=== PATIENT | male | born 1980 | race Caucasian/White ===

== ENCOUNTER 2018-10-29 21:43 | Emergency (ER) | payer OTHER, SELFPAY ==
--- NOTE | 2018-10-29 21:44 | DI.RAD.S_ITS ---
PROCEDURE: XR CHEST 1V INDICATIONS: chest pain TECHNIQUE: One view of the chest was acquired. COMPARISON: [facility], CR, XR CHEST 1VW (PORTABLE), 07/10/2015, 14:59. FINDINGS: Surgical changes and devices: None. Lungs and pleura: No pleural effusions or pneumothorax. 0.5 cm rounded nodular opacity projecting over the right middle lobe. Lungs are otherwise clear. Mediastinum: Mediastinal contours appear normal. Heart size is normal. Bones and chest wall: Mild multilevel degenerative changes of the spine. IMPRESSION: 1. 0.5 cm rounded nodular opacity projecting over the right middle lobe is slightly more prominent than on comparison exam of 07/10/15, and may represent a pulmonary vessel seen on end versus a pulmonary nodule/granuloma. Consider followup outpatient imaging if there is continued clinical concern. 2. No focal pulmonary consolidations consistent with pneumonia. Dictated by: Ej Bertrand M.D. on 10/30/2018 at 8:34 Approved by: Ej Bertrand M.D. on 10/30/2018 at 8:42
--- NOTE | 2018-10-29 21:45 | ED.CHESTPAIN ---
HPI - Chest Pain General Chief Complaint: Chest Pain Stated Complaint: chest pains Time Seen by Provider: 10/29/18 21:44 Source: patient Mode of arrival: ambulatory Limitations: no limitations History of Present Illness HPI narrative: Patient is a 38-year-old male with known coronary artery disease. Approximately 3-4 years ago he stated that he had a ?heart attack? he stated that he had a cardiac catheterization at that time and had stents placed. He is currently on aspirin and cholesterol medicine and also a beta-sadi. He states that he has had no issues since that event. It appears that his father had early cardiac disease. 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 He states that last evening he started to have left-sided chest discomfort. He states that the symptoms went away on their own. He had no symptoms when he woke up this morning. Went about his normal daily activities. He states that approximately 1800 this afternoon he started to have the chest discomfort again. He states it has been consistent since then. He does state that it is much less intense than his prior cardiac issues. He did take 2 nitro when the symptoms started reported very minimal relief. States the symptoms are not worse with palpation or movement or breathing. Does not radiate. Related Data Allergies Allergy/AdvReac Type Severity Reaction Status Date / Time Penicillins [PENICILLINS] Allergy Severe Unverified 01/25/18 12:34 Review of Systems Constitutional Denies fever(s) and Denies headache(s) ENT Ears, Nose, Mouth, and Throat: Denies vertigo, Denies dizziness and Denies headache(s) Cardiovascular Reports chest pain, Denies rapid heart rate, Denies pedal edema, Denies edema, Denies irregular heart rhythm, Denies leg edema, Denies lightheadedness, Denies radiating jaw, neck or arm pain, Denies palpitations, Denies dyspnea and Denies orthopnea Respiratory Denies cough, Denies dyspnea and Denies wheezing Gastrointestinal Gastrointestinal: Denies abdominal pain, Denies nausea and Denies vomiting Musculoskeletal Denies myalgias and Denies arthralgias Integumentary/Breasts Denies rash Neurologic Denies vertigo, Denies dizziness and Denies headache(s) Endocrine Denies palpitations Hematologic/Lymphatic Comments: Not on anticoagulation Allergic/Immunologic Denies wheezing PFSH Medical History Coronary artery disease (Acute) Hypertension (Acute) Surgical History S/P cardiac catheterization (Acute) Social History Smoking Status: Former smoker Exam Initial Vital Signs Initial Vital Signs: Vital Signs Temperature 98.1 F 10/29/18 21:55 Pulse Rate 90 10/29/18 21:55 Respiratory Rate 13 10/29/18 21:55 Blood Pressure 194/124 H 10/29/18 21:55 Pulse Oximetry 98 10/29/18 21:55 Const General: cooperative, healthy appearing, comfortable, well developed, well groomed and No acute distress Orientation: alert, awake and oriented x3 HENMT Head: normal to inspection and normocephalic Chest Chest: normal inspection of the chest, No crepitus and No tenderness Resp Effort & Inspection: normal respiratory effort Auscultation: clear to auscultation bilaterally Cardio Rate: regular rate Rhythm: regular rhythm Heart Sounds: no murmurs Pulses: radial pulses present GI Inspection: non-distended Palpation: soft and No tender Skin Lesions: no lesions Rashes: no rashes Neuro General: alert, awake and oriented x3 Cognition: normal cognition Speech: speech normal Extrem General: normal to inspection and No edema Psych Appearance: grossly normal and well kempt Course Orders Ordered: ED Orders 10/29/18 21:44 XR chest 1V Stat EKG-12 Lead Stat 10/29/18 22:08 Basic Metabolic Panel Stat Complete Blood Count AUTO DIFF Stat Troponin I Stat 10/29/18 23:30 PTT [Partial Thromboplastin Time] Q6H 10/30/18 05:00 Hemoglobin and Hematocrit DAILY 10/30/18 05:30 PTT [Partial Thromboplastin Time] Q6H 10/30/18 11:30 PTT [Partial Thromboplastin Time] Q6H 10/30/18 17:30 PTT [Partial Thromboplastin Time] Q6H Heparin Sodium (Porcine) (Heparin) 0 unit IV Q6H PRN; Protocol PRN Reason: protocol Heparin Sodium/Dextrose (Heparin Drip) 25,000 unit in 500 mls @ 20.684 mls/hr IV CONT MAKI; Protocol Discontinued Medications Aspirin (Aspirin Chew) 324 mg PO NOW ONE Stop: 10/29/18 21:57 Last Admin: 10/29/18 22:01 Dose: 324 mg Heparin Sodium (Porcine) (Heparin) 5,000 unit IV NOW ONE Stop: 10/29/18 23:27 Nitroglycerin (Nitro-Bid) 1 inch TOP NOW ONE Stop: 10/29/18 23:27 Vital Signs - 8 hr 10/29/18 21:55 10/29/18 22:00 10/29/18 22:46 Temperature 98.1 F Pulse Rate 90 84 89 Respiratory Rate 13 15 24 Blood Pressure 194/124 H Blood Pressure [Left Arm] 163/115 H 161/116 H Pulse Oximetry 98 97 95 10/29/18 23:18 Temperature Pulse Rate 81 Respiratory Rate 17 Blood Pressure Blood Pressure [Left Arm] 159/96 H Pulse Oximetry 99 MDM - Chest Pain Lab Data Attestation: I reviewed the patient's lab results. Result diagrams: 10/29/18 22:08 10/29/18 22:08 Lab Results 10/29/18 10/29/18 Range/Units 22:08 22:08 WBC 7.9 (4.5-11.0) X10^3/uL RBC 5.58 (4.5-5.9) X10^6/uL Hgb 16.5 (13.5-17.5) g/dL Hct 48.9 (41-53) % MCV 87.8 (80-100) fL MCH 29.6 (26-34) PG MCHC 33.8 (30-36) % RDW 13.1 (11.6-14.8) % Plt Count 374 (150-400) X10^3/uL Neut % (Auto) 56.4 (50-75) % Lymph % (Auto) 31.8 (25-40) % [place] % (Auto) 8.3 (3-14) % Eos % (Auto) 2.9 (2-4) % Baso % (Auto) 0.6 (0-2) % Neut # (Auto) 4400 (5589-7331) /uL Lymph # (Auto) 2500 (4882-9222) /uL [place] # (Auto) 700 (0-900) /uL Eos # (Auto) 200 (0-450) /uL Baso # (Auto) 0 (0-100) /uL Sodium 141 (137-145) mmol/L Potassium 4.1 (3.4-5.1) mmol/L Chloride 105 (98-107) mmol/L Carbon Dioxide 25 (22-32) mmol/L BUN 22 H (9-20) mg/dL Creatinine 0.90 (0.66-1.25) mg/dL Estimated GFR > 60.0 (>60) mL/min BUN/Creatinine Ratio 24.4 H (6-22) Glucose 105 H (70-100) mg/dL Calcium 9.3 (8.4-10.2) mg/dL Troponin I 0.049 H (0.01-0.034) ng/mL Imaging Data Chest x-ray: Attestation: I personally reviewed and interpreted this imaging study as follows: My impression: Normal size heart No focal consolidations No pneumothorax ECG Data Attestation: I personally reviewed and interpreted this ECG as follows: Prior ECG tracings: not available for review Interpretation: Sinus rhythm Ventricular rate is 77 LVH Normal QRS Normal QTC Q-wave in 2 AVF [address] T wave changes MDM Narrative Medical decision making narrative: Patient was given an aspirin. Nonischemic EKG. Chest x-ray is unremarkable. Does have a significant cardiovascular disease history with a prior history of a myocardial infarction. I have no prior EKGs notes regarding his prior cardiac history. He does see a back tufter but is through the [employer] system. Patient does have an elevated troponin today in the ER. I did discuss the case with Dr. De La Cruz on-call for Cardiology at [facility] who recommended treating him like a NSTEMI. Patient was started on heparin. Also started on a nitro drip. Discussed the case with the on-call hospitalist [facility] who accepts the patient in transfer. Discussed the transfer with the patient and his her bedside. They expressed understanding and agreement. Patient is stable for transport. Discharge Plan Departure Patient Disposition: [facility] Clinical Impression: ACS (acute coronary syndrome)
[2018-10-29 21:55] VITALS: BP 194/124; PULSE 90; RESP 13; TEMP 36.7; O2SAT 98; BMI 27.2
[2018-10-29 22:00] VITALS: BP 163/115; PULSE 84; RESP 15; O2SAT 97
[2018-10-29] MEDS: ASPIRIN 81 MG TAB 324 MG PO (22:01)
[2018-10-29 22:44] LABS: Add Manual Diff / Slide Review NO; BUN Creatinine Ratio 24.4 (6-22); Basophils Absolute Auto 0 /uL (0-100); Basophils Percent Auto 0.6 % (0-2); Blood Urea Nitrogen 22 mg/dL (9-20); Calcium 9.3 mg/dL (8.4-10.2); Carbon Dioxide 25 mmol/L (22-32); Chloride 105 mmol/L (98-107); Eosinophils Absolute Auto 200 /uL (0-450); Eosinophils Percent Auto 2.9 % (2-4); Estimated Glomerular Filt Rate > 60.0 mL/min (>60); Glucose 105 mg/dL (70-100); Hematocrit 48.9 % (41-53); Hemoglobin 16.5 g/dL (13.5-17.5); Lymphocytes Absolute Auto 2500 /uL (1100-4500); Lymphocytes Percent Auto 31.8 % (25-40); Mean Corpuscular HGB Conc 33.8 % (30-36); Mean Corpuscular Hemoglobin 29.6 PG (26-34); Mean Corpuscular Volume 87.8 fL (80-100); Monocytes Absolute Auto 700 /uL (0-900); Monocytes Percent Auto 8.3 % (3-14); Neutrophils Absolute Auto 4400 /uL (1500-7000); Neutrophils Percent Auto 56.4 % (50-75); Platelet Count 374 X10^3/uL (150-400); Potassium 4.1 mmol/L (3.4-5.1); Red Blood Cell Count 5.58 X10^6/uL (4.5-5.9); Red Cell Distribution Width 13.1 % (11.6-14.8); Sodium 141 mmol/L (137-145); White Blood Cell Count 7.9 X10^3/uL (4.5-11.0)
[2018-10-29 22:46] VITALS: BP 161/116; PULSE 89; RESP 24; O2SAT 95
[2018-10-29 22:54] LABS: HEMOLYSIS 73 (0-50)
[2018-10-29 22:56] LABS: Troponin I 0.049 ng/mL (0.01-0.034)
[2018-10-29 23:18] VITALS: BP 159/96; PULSE 81; RESP 17; O2SAT 99
[2018-10-29] MEDS: HEPARIN 5,000 UNIT/ML VIAL 5000 UNIT IV (23:37)
[2018-10-29] MEDS: HEPARIN DRIP 25,000 UNIT/500 ML IV.SOLN 20.684 UNIT IV (23:38)
[2018-10-29 23:41] VITALS: BP 181/132; PULSE 84
[2018-10-29] MEDS: NITROGLYCERIN 50 MG/250 ML INFUS..BTL IV (23:41)
--- NOTE | 2018-10-30 00:15 | PC.NURSE ---
Pt reports chest pain is now 1/10 on nitro gtt at 7ml/hr. Gtt increased to 9ml/hr = 30 mcg/minute. Dr Ramires updated. BP stable.
[2018-10-30 00:21] LABS: PTT Partial Thromboplastin Tim 36 SECONDS (26.4-36.2)
[2018-10-30 00:47] VITALS: BP 143/87; PULSE 93; RESP 17; O2SAT 94
--- NOTE | 2018-10-30 00:56 | PC.NURSE ---
[facility]
--- NOTE | 2018-10-30 01:39 | PC.NURSE ---
iv infusions of heparin and nitro to continue in transport
== END 2018-10-30 01:15 | disposition short-term general hospital (02) ==
PROVIDERS: Emergency Provider Emergency Medicine; Family Provider Pediatrics; PCP Pediatrics
DX: I24.9 Acute ischemic heart disease, unspecified (principal)
CPT/HCPCS: 36591; 71045; 80048; 84484; 85025; 85730; 93005; 93010; 96365; 96366; 96368; 96375; 99284; 99285; J1644

== ENCOUNTER 2021-11-05 09:47 | Emergency (ER) | payer OTHER, SELFPAY ==
[2021-11-05] VITALS (71 sets, daily range): BP systolic 106–169; BP diastolic 67–110; PULSE 55–88; RESP 12–30; TEMP 36.7; O2SAT 91–99; BMI 31.6
--- NOTE | 2021-11-05 09:56 | DI.RAD.S_ITS ---
PROCEDURE: XR CHEST 1V INDICATIONS: chest pain TECHNIQUE: One view of the chest was acquired. COMPARISON: [facility], CR, XR CHEST 1VW (PORTABLE), 07/10/2015, 14:59. [facility], CR, XR CHEST 1V, 10/29/2018, 22:21. FINDINGS: Surgical changes and devices: None. Lungs and pleura: An incomplete inspiratory result is noted, causing a crowded appearance to the lung markings. No focal infiltrates are seen. No pneumothorax or significant pleural effusions are seen. Mediastinum: Mediastinal contours appear normal. Heart size is at the upper limits of normal for incomplete inspiratory result. Bones and chest wall: No suspicious bony lesions. Overlying soft tissues appear unremarkable. IMPRESSION: Limited portable chest examination, without a significant cardiopulmonary abnormality identified. Dictated by: Lul Winters M.D. on 11/05/2021 at 9:06 Approved by: Lul Winters M.D. on 11/05/2021 at 9:07
--- NOTE | 2021-11-05 09:56 | PC.NURSE ---
verbal order from dr calixto to add Nitro and asa order in chest pain orders.
[2021-11-05] MEDS: ASPIRIN 81 MG CHEW TAB 324 MG PO (10:00)
[2021-11-05] MEDS: NITROGLYCERIN 0.4 MG SL TAB SL ×2 (10:01→10:18)
[2021-11-05 10:09] LABS: Add Manual Diff / Slide Review NO; Basophils Absolute Auto 0 /uL (0-100); Basophils Percent Auto 0.6 % (0-2); Eosinophils Absolute Auto 200 /uL (0-450); Hematocrit 45.6 % (41-53); Hemoglobin 15.5 g/dL (13.5-17.5); Lymphocytes Absolute Auto 1600 /uL (1100-4500); Lymphocytes Percent Auto 21.6 % (25-40); Mean Corpuscular HGB Conc 33.9 % (30-36); Mean Corpuscular Hemoglobin 29.6 PG (26-34); Mean Corpuscular Volume 87.4 fL (80-100); Monocytes Absolute Auto 700 /uL (0-900); Monocytes Percent Auto 9.6 % (3-14); Neutrophils Absolute Auto 5000 /uL (1500-7000); Neutrophils Percent Auto 66.2 % (50-75); Platelet Count 361 X10^3/uL (150-400); Red Blood Cell Count 5.22 X10^6/uL (4.5-5.9); Red Cell Distribution Width 13.6 % (11.6-14.8); White Blood Cell Count 7.6 X10^3/uL (4.5-11.0)
--- NOTE | 2021-11-05 10:09 | ED_ITS ---
HPI - Chest Pain <Alejandra Madrigal DO - Last Filed: 11/06/21 22:27> General Chief Complaint: Chest Pain Stated Complaint: CHEST/BACK PAIN, HX OF HEART ATTACKS Time Seen by Provider: 11/05/21 10:01 Source: patient Mode of arrival: Ambulatory Limitations: no limitations History of Present Illness HPI narrative: 41-year-old male nonsmoker with history of hypertension, hyperlipidemia and prior heart attacks, most recently stented in 2019 at [place], also 2014 at [place] and [place] a ago presents with 7/10 chest and back pain with radiation to his left shoulder that he woke up with this morning. He denies any obvious provocation or palliation. He states he took nitro at home with no change. He denies associated symptoms such as dizziness, weakness or lightheadedness. He denies any diaphoresis, nausea or vomiting. He is not short of breath and denies any recent travel. He states that in some ways this feels similar to prior episodes and others it is slightly different. His pain is squeezing and grabbing in nature. Related Data Home Medications Medication Instructions Recorded Confirmed aspirin 81 mg tablet,delayed 81 mg PO QAM 10/30/18 11/05/21 release (Adult Low Dose Aspirin) carvedilol 12.5 mg tablet 12.5 mg PO BID 10/30/18 11/05/21 ezetimibe 10 mg tablet (Zetia) 10 mg PO QAM 10/30/18 11/05/21 nitroglycerin 0.4 mg sublingual 0.4 mg SUBLINGUAL Q5-15M PRN 10/30/18 11/05/21 tablet atorvastatin 80 mg tablet 80 mg PO QAM 11/05/21 11/05/21 clopidogrel 75 mg tablet 75 mg PO QAM 11/05/21 11/05/21 dulaglutide 1.5 mg/0.5 mL 1.5 mg SUBCUT QWEEK 11/05/21 11/05/21 subcutaneous pen injector (Trulicity) empagliflozin 25 mg tablet 25 mg PO QAM 11/05/21 11/05/21 (Jardiance) lisinopril 10 mg tablet 10 mg PO BID 11/05/21 11/05/21 Allergies Allergy/AdvReac Type Severity Reaction Status Date / Time metformin Allergy Unknown Verified 11/05/21 10:47 Penicillins [PENICILLINS] Allergy Unknown Verified 11/05/21 10:47 Review of Systems <Alejandra Madrigal DO - Last Filed: 11/06/21 22:27> Review of Systems Narrative: GENERAL: Denies chills, fatigue, malaise, fever, sweats. HEENT: Denies sinus pain, ear pain, sore throat, difficulty swallowing, dizziness. RESPIRATORY: Denies dyspnea, cough, wheezing, hemoptysis, sputum. CARDIOVASCULAR: See HPI GASTROINTESTINAL: Denies nausea, vomiting, abdominal pain, diarrhea, constipat ion, melena. : Denies dysuria, frequency, incontinence, hematuria, urinary retention. MUSCULOSKELETAL: denies weakness, joint pain, or bony pain SKIN: Denies rash, skin lesions, or other NEUROLOGIC: Denies weakness, headache, numbness, change in speech, confusion, seizures, incoordination. PSYCHIATRIC: No concerning psychosocial issues. 12 point review of systems is negative except for those stated above Patient History <Alejandra Madrigal DO - Last Filed: 11/06/21 22:27> Medical History Coronary artery disease Hypertension Surgical History S/P cardiac catheterization Social History Smoking Status: Former smoker Smoking Status: Former smoker alcohol intake frequency: 0-2 drinks per day Substance Use Type: does not use Exam <Alejandra Madrigal DO - Last Filed: 11/06/21 22:27> Narrative Exam Narrative: GENERAL: [41 year old patient appears stated age. Well-developed patient, in mild distress. HEAD: Atraumatic. Normocephalic. EYES: Pupils equal round and reactive. Extraocular motions intact. No scleral icterus. No injection or drainage. ENT: Nose without bleeding, purulent drainage. Throat without erythema, tonsillar hypertrophy or exudate. Airway patent. NECK: Trachea midline. Non tender CARDIOVASCULAR: Regular rate and rhythm without murmurs, gallops, or rubs. RESPIRATORY: Clear to auscultation. Breath sounds equal bilaterally. No wheezes, rales, or rhonchi. GASTROINTESTINAL: Abdomen soft, non-tender, nondistended. EXTREMITIES: No edema or joint tenderness. BACK: Nontender without deformity or crepitance. No flank tenderness. NEURO: AOx3. SKIN: No rash or erythema of visible areas Initial Vital Signs Initial Vital Signs: Vital Signs Temperature 98.1 F 11/05/21 09:50 Pulse Rate 88 11/05/21 09:50 Respiratory Rate 16 11/05/21 09:50 Blood Pressure 162/100 H 11/05/21 09:50 Pulse Oximetry 99 11/05/21 09:50 <Mary Juarez, DO - Last Filed: 11/09/21 07:32> Initial Vital Signs Initial Vital Signs: Vital Signs Temperature 98.1 F 11/05/21 09:50 Pulse Rate 88 11/05/21 09:50 Respiratory Rate 16 11/05/21 09:50 Blood Pressure 162/100 H 11/05/21 09:50 Pulse Oximetry 99 11/05/21 09:50 <Beau Ramires DO - Last Filed: 11/06/21 16:37> Initial Vital Signs Initial Vital Signs: Vital Signs Temperature 98.1 F 11/05/21 09:50 Pulse Rate 88 11/05/21 09:50 Respiratory Rate 16 11/05/21 09:50 Blood Pressure 162/100 H 11/05/21 09:50 Pulse Oximetry 99 11/05/21 09:50 Course <Alejandra Madrigal, DO - Last Filed: 11/06/21 22:27> Orders Ordered: Discontinued Medications Aspirin (Aspirin 81 Mg Chew Tab) 324 mg PO NOW ONE Stop: 11/05/21 09:56 Last Admin: 11/05/21 10:00 Dose: 324 mg Documented by: FLO Aspirin (Aspirin Ec 81 Mg Tablet) 81 mg PO DAILY [facility] Last Admin: 11/06/21 08:41 Dose: 81 mg Documented by: NIC Atorvastatin Calcium (Atorvastatin 20 Mg Tablet) 80 mg PO DAILY [facility] Last Admin: 11/06/21 08:38 Dose: 80 mg Documented by: NIC Carvedilol (Carvedilol 12.5 Mg Tablet) 12.5 mg PO BID [facility] Last Admin: 11/06/21 08:37 Dose: 12.5 mg Documented by: Admin: 11/05/21 20:57 Dose: 12.5 mg Documented by: RAMAN Clopidogrel Bisulfate (Clopidogrel 75 Mg Tablet) 75 mg PO DAILY [facility] Last Admin: 11/06/21 08:36 Dose: 75 mg Documented by: NIC Ezetimibe (Ezetimibe 10 Mg Tablet) 10 mg PO DAILY [facility] Last Admin: 11/06/21 08:38 Dose: 10 mg Documented by: NIC Heparin Sodium (Porcine) (Heparin 5,000 Unit/Ml Vial) 5,000 unit IV NOW ONE Stop: 11/05/21 14:09 Last Admin: 11/05/21 14:25 Dose: 5,000 unit Documented by: RAMAN Heparin Sodium (Porcine) (Heparin 5,000 Unit/Ml Vial) 3,000 unit IV NOW ONE Stop: 11/06/21 03:17 Last Admin: 11/06/21 03:24 Dose: 3,000 unit Documented by: TYE Heparin Sodium/Dextrose (Heparin Drip) 25,000 unit in 500 mls @ 20 mls/hr IV CONT [facility]; Protocol Last Titration: 11/06/21 17:40 Dose: 0 units/hr, 0 mls/hr Documented by: Titration: 11/06/21 17:38 Dose: 0 units/hr, 0 mls/hr Documented by: Titration: 11/06/21 09:45 Dose: 850 units/hr, 17 mls/hr Documented by: Titration: 11/06/21 09:15 Dose: 0 units/hr, 0 mls/hr Documented by: Titration: 11/06/21 03:20 Dose: 950 units/hr, 19 mls/hr Documented by: Titration: 11/05/21 21:48 Dose: 850 units/hr, 17 mls/hr Documented by: Titration: 11/05/21 20:45 Dose: 0 units/hr, 0 mls/hr Documented by: Admin: 11/05/21 14:24 Dose: 1,000 units/hr, 20 mls/hr Documented by: RAMAN Lisinopril (Lisinopril 10 Mg Tablet) 10 mg PO BID [facility] Last Admin: 11/06/21 08:37 Dose: 10 mg Documented by: Admin: 11/05/21 20:57 Dose: 10 mg Documented by: RAMAN Morphine Sulfate (Morphine 4 Mg/Ml Inj) 4 mg IV NOW ONE Stop: 11/05/21 10:38 Last Admin: 11/05/21 10:47 Dose: 4 mg Documented by: MATEUS Nitroglycerin (Nitroglycerin 0.4 Mg Sl Tab) 0.4 mg SL [id number] PRN PRN Reason: Chest Pain Last Admin: 11/05/21 10:18 Dose: 0.4 mg Documented by: Admin: 11/05/21 10:01 Dose: 0.4 mg Documented by: CHRISTENONERaquel Reevaluation(s) Reevaluation #1: No change after 1st nitro Reevaluation #2: Patient's pain down to a 2 or 3/10 after morphine. Ongoing EKGs orthopaedic general to be nonischemic. Repeat troponin is unremarkable. Consultations Consultation #1: After completion of our evaluation in department I have placed a call to patient's cardiology group ([facility]), given his high risk presentation, history of multiple prior heart catheterization and stents they recommend transfer due to need for catheterization with diagnosis of unstable a ngina and initiation of heparin Consultation #2: [facility] no beds [place] no beds - on a list [place] no beds [place] [place] - no beds - no beds [facility] no beds Time: 14:30 Vital Signs Vital signs: Vital Signs - 8 hr 11/06/21 14:30 11/06/21 14:45 11/06/21 15:00 Pulse Rate 78 77 73 Respiratory Rate 20 22 25 H Blood Pressure 122/76 Pulse Oximetry 96 95 95 11/06/21 15:15 11/06/21 15:30 11/06/21 15:45 Pulse Rate 77 72 76 Respiratory Rate 19 20 23 Blood Pressure Pulse Oximetry 96 94 96 11/06/21 16:00 11/06/21 16:15 11/06/21 16:30 Pulse Rate 78 76 76 Respiratory Rate 21 22 20 Blood Pressure 152/98 H Pulse Oximetry 97 97 95 11/06/21 16:45 11/06/21 17:00 11/06/21 17:15 Pulse Rate 69 71 71 Respiratory Rate 20 20 21 Blood Pressure 143/95 H Pulse Oximetry 97 97 96 <Mary Juarez DO - Last Filed: 11/09/21 07:32> Orders Ordered: Discontinued Medications Aspirin (Aspirin 81 Mg Chew Tab) 324 mg PO NOW ONE Stop: 11/05/21 09:56 Last Admin: 11/05/21 10:00 Dose: 324 mg Documented by: FLO Aspirin (Aspirin Ec 81 Mg Tablet) 81 mg PO DAILY [facility] Last Admin: 11/06/21 08:41 Dose: 81 mg Documented by: NIC Atorvastatin Calcium (Atorvastatin 20 Mg Tablet) 80 mg PO DAILY [facility] Last Admin: 11/06/21 08:38 Dose: 80 mg Documented by: NIC Carvedilol (Carvedilol 12.5 Mg Tablet) 12.5 mg PO BID [facility] Last Admin: 11/06/21 08:37 Dose: 12.5 mg Documented by: Admin: 11/05/21 20:57 Dose: 12.5 mg Documented by: RAMAN Clopidogrel Bisulfate (Clopidogrel 75 Mg Tablet) 75 mg PO DAILY [facility] Last Admin: 11/06/21 08:36 Dose: 75 mg Documented by: NIC Ezetimibe (Ezetimibe 10 Mg Tablet) 10 mg PO DAILY [facility] Last Admin: 11/06/21 08:38 Dose: 10 mg Documented by: NIC Heparin Sodium (Porcine) (Heparin 5,000 Unit/Ml Vial) 5,000 unit IV NOW ONE Stop: 11/05/21 14:09 Last Admin: 11/05/21 14:25 Dose: 5,000 unit Documented by: RAMAN Heparin Sodium (Porcine) (Heparin 5,000 Unit/Ml Vial) 3,000 unit IV NOW ONE Stop: 11/06/21 03:17 Last Admin: 11/06/21 03:24 Dose: 3,000 unit Documented by: TYE Heparin Sodium/Dextrose (Heparin Drip) 25,000 unit in 500 mls @ 20 mls/hr IV CONT [facility]; Protocol Last Titration: 11/06/21 17:40 Dose: 0 units/hr, 0 mls/hr Documented by: Titration: 11/06/21 17:38 Dose: 0 units/hr, 0 mls/hr Documented by: Titration: 11/06/21 09:45 Dose: 850 units/hr, 17 mls/hr Documented by: Titration: 11/06/21 09:15 Dose: 0 units/hr, 0 mls/hr Documented by: Titration: 11/06/21 03:20 Dose: 950 units/hr, 19 mls/hr Documented by: Titration: 11/05/21 21:48 Dose: 850 units/hr, 17 mls/hr Documented by: Titration: 11/05/21 20:45 Dose: 0 units/hr, 0 mls/hr Documented by: Admin: 11/05/21 14:24 Dose: 1,000 units/hr, 20 mls/hr Documented by: RAMAN Lisinopril (Lisinopril 10 Mg Tablet) 10 mg PO BID [facility] Last Admin: 11/06/21 08:37 Dose: 10 mg Documented by: Admin: 11/05/21 20:57 Dose: 10 mg Documented by: RAMAN Morphine Sulfate (Morphine 4 Mg/Ml Inj) 4 mg IV NOW ONE Stop: 11/05/21 10:38 Last Admin: 11/05/21 10:47 Dose: 4 mg Documented by: MATEUS Nitroglycerin (Nitroglycerin 0.4 Mg Sl Tab) 0.4 mg SL [id number] PRN PRN Reason: Chest Pain Last Admin: 11/05/21 10:18 Dose: 0.4 mg Documented by: Admin: 11/05/21 10:01 Dose: 0.4 mg Documented by: FLO Vital Signs Vital signs: Vital Signs - 8 hr 11/06/21 14:30 11/06/21 14:45 11/06/21 15:00 Pulse Rate 78 77 73 Respiratory Rate 20 22 25 H Blood Pressure 122/76 Pulse Oximetry 96 95 95 11/06/21 15:15 11/06/21 15:30 11/06/21 15:45 Pulse Rate 77 72 76 Respiratory Rate 19 20 23 Blood Pressure Pulse Oximetry 96 94 96 11/06/21 16:00 11/06/21 16:15 11/06/21 16:30 Pulse Rate 78 76 76 Respiratory Rate 21 22 20 Blood Pressure 152/98 H Pulse Oximetry 97 97 95 11/06/21 16:45 11/06/21 17:00 11/06/21 17:15 Pulse Rate 69 71 71 Respiratory Rate 20 20 21 Blood Pressure 143/95 H Pulse Oximetry 97 97 96 <Beau Ramires DO - Last Filed: 11/06/21 16:37> Orders Ordered: Discontinued Medications Aspirin (Aspirin 81 Mg Chew Tab) 324 mg PO NOW ONE Stop: 11/05/21 09:56 Last Admin: 11/05/21 10:00 Dose: 324 mg Documented by: FLO Aspirin (Aspirin Ec 81 Mg Tablet) 81 mg PO DAILY [facility] Last Admin: 11/06/21 08:41 Dose: 81 mg Documented by: NIC Atorvastatin Calcium (Atorvastatin 20 Mg Tablet) 80 mg PO DAILY [facility] Last Admin: 11/06/21 08:38 Dose: 80 mg Documented by: NIC Carvedilol (Carvedilol 12.5 Mg Tablet) 12.5 mg PO BID [facility] Last Admin: 11/06/21 08:37 Dose: 12.5 mg Documented by: Admin: 11/05/21 20:57 Dose: 12.5 mg Documented by: RAMAN Clopidogrel Bisulfate (Clopidogrel 75 Mg Tablet) 75 mg PO DAILY [facility] Last Admin: 11/06/21 08:36 Dose: 75 mg Documented by: NIC Ezetimibe (Ezetimibe 10 Mg Tablet) 10 mg PO DAILY [facility] Last Admin: 11/06/21 08:38 Dose: 10 mg Documented by: NIC Heparin Sodium (Porcine) (Heparin 5,000 Unit/Ml Vial) 5,000 unit IV NOW ONE Stop: 11/05/21 14:09 Last Admin: 11/05/21 14:25 Dose: 5,000 unit Documented by: RAMAN Heparin Sodium (Porcine) (Heparin 5,000 Unit/Ml Vial) 3,000 unit IV NOW ONE Stop: 11/06/21 03:17 Last Admin: 11/06/21 03:24 Dose: 3,000 unit Documented by: TYE Heparin Sodium/Dextrose (Heparin Drip) 25,000 unit in 500 mls @ 20 mls/hr IV CONT [facility]; Protocol Last Titration: 11/06/21 17:40 Dose: 0 units/hr, 0 mls/hr Documented by: Titration: 11/06/21 17:38 Dose: 0 units/hr, 0 mls/hr Documented by: Titration: 11/06/21 09:45 Dose: 850 units/hr, 17 mls/hr Documented by: Titration: 11/06/21 09:15 Dose: 0 units/hr, 0 mls/hr Documented by: Titration: 11/06/21 03:20 Dose: 950 units/hr, 19 mls/hr Documented by: Titration: 11/05/21 21:48 Dose: 850 units/hr, 17 mls/hr Documented by: Titration: 11/05/21 20:45 Dose: 0 units/hr, 0 mls/hr Documented by: Admin: 11/05/21 14:24 Dose: 1,000 units/hr, 20 mls/hr Documented by: RAMAN Lisinopril (Lisinopril 10 Mg Tablet) 10 mg PO BID [facility] Last Admin: 11/06/21 08:37 Dose: 10 mg Documented by: Admin: 11/05/21 20:57 Dose: 10 mg Documented by: RAMAN Morphine Sulfate (Morphine 4 Mg/Ml Inj) 4 mg IV NOW ONE Stop: 11/05/21 10:38 Last Admin: 11/05/21 10:47 Dose: 4 mg Documented by: MATEUS Nitroglycerin (Nitroglycerin 0.4 Mg Sl Tab) 0.4 mg SL [id number] PRN PRN Reason: Chest Pain Last Admin: 11/05/21 10:18 Dose: 0.4 mg Documented by: Admin: 11/05/21 10:01 Dose: 0.4 mg Documented by: FLO Vital Signs Vital signs: Vital Signs - 8 hr 11/06/21 14:30 11/06/21 14:45 11/06/21 15:00 Pulse Rate 78 77 73 Respiratory Rate 20 22 25 H Blood Pressure 122/76 Pulse Oximetry 96 95 95 11/06/21 15:15 11/06/21 15:30 11/06/21 15:45 Pulse Rate 77 72 76 Respiratory Rate 19 20 23 Blood Pressure Pulse Oximetry 96 94 96 11/06/21 16:00 11/06/21 16:15 11/06/21 16:30 Pulse Rate 78 76 76 Respiratory Rate 21 22 20 Blood Pressure 152/98 H Pulse Oximetry 97 97 95 11/06/21 16:45 11/06/21 17:00 11/06/21 17:15 Pulse Rate 69 71 71 Respiratory Rate 20 20 21 Blood Pressure 143/95 H Pulse Oximetry 97 97 96 MDM - Chest Pain <Alejandra Madrigal DO - Last Filed: 11/06/21 22:27> Lab Data Result diagrams: 11/06/21 08:55 11/06/21 08:55 Labs: Lab Results 11/05/21 11/05/21 11/05/21 Range/Units 10:00 10:00 10:00 WBC 7.6 (4.5-11.0) X10^3/uL RBC 5.22 (4.5-5.9) X10^6/uL Hgb 15.5 (13.5-17.5) g/dL Hct 45.6 (41-53) % MCV 87.4 (80-100) fL MCH 29.6 (26-34) PG MCHC 33.9 (30-36) % RDW 13.6 (11.6-14.8) % Plt Count 361 (150-400) X10^3/uL Neut % (Auto) 66.2 (50-75) % Lymph % (Auto) 21.6 L (25-40) % [place] % (Auto) 9.6 (3-14) % Eos % (Auto) 2.0 (2-4) % Baso % (Auto) 0.6 (0-2) % Neut # (Auto) 5000 (5826-9991) /uL Lymph # (Auto) 1600 (1954-9254) /uL [place] # (Auto) 700 (0-900) /uL Eos # (Auto) 200 (0-450) /uL Baso # (Auto) 0 (0-100) /uL APTT 38 H (26.4-36.2) SECONDS Sodium 140 (137-145) mmol/L Potassium 3.9 (3.4-5.1) mmol/L Chloride 105 (98-107) mmol/L Carbon Dioxide 27 (22-32) mmol/L BUN 14 (9-20) mg/dL Creatinine 0.95 (0.66-1.25) mg/dL Estimated GFR > 60.0 (>60) mL/min BUN/Creatinine Ratio 14.7 (6-22) Glucose 104 H (70-100) mg/dL Calcium 10.0 (8.4-10.2) mg/dL Magnesium 2.1 (1.6-2.3) mg/dL Total Bilirubin 0.7 (0.2-1.3) mg/dL AST 26 (17-59) IU/L ALT 47 (<50) IU/L Alkaline Phosphatase 80 (38-126) U/L Total Creatine Kinase 143 (55-170) U/L CK-MB (CK-2) 0.73 (<2.37) ng/mL CK-MB (CK-2) Rel Index 0.5 L (1.5-5.0) % Troponin I < 0.012 (0.01-0.034) ng/mL Total Protein 8.1 (6.3-8.2) g/dL Albumin 4.7 (3.5-5.0) g/dL Globulin 3.4 (1.7-4.1) g/dL Albumin/Globulin Ratio 1.4 (1.0-2.8) Lipase 132 (23-300) U/L SARS-CoV-2 (PCR) (Negative) 11/05/21 11/05/21 11/05/21 Range/Units 10:15 12:00 20:06 WBC (4.5-11.0) X10^3/uL RBC (4.5-5.9) X10^6/uL Hgb (13.5-17.5) g/dL Hct (41-53) % MCV (80-100) fL MCH (26-34) PG MCHC (30-36) % RDW (11.6-14.8) % Plt Count (150-400) X10^3/uL Neut % (Auto) (50-75) % Lymph % (Auto) (25-40) % [place] % (Auto) (3-14) % Eos % (Auto) (2-4) % Baso % (Auto) (0-2) % Neut # (Auto) (5648-2749) /uL Lymph # (Auto) (5333-3143) /uL [place] # (Auto) (0-900) /uL Eos # (Auto) (0-450) /uL Baso # (Auto) (0-100) /uL APTT 117 H* D (26.4-36.2) SECONDS Sodium (137-145) mmol/L Potassium (3.4-5.1) mmol/L Chloride (98-107) mmol/L Carbon Dioxide (22-32) mmol/L BUN (9-20) mg/dL Creatinine (0.66-1.25) mg/dL Estimated GFR (>60) mL/min BUN/Creatinine Ratio (6-22) Glucose (70-100) mg/dL Calcium (8.4-10.2) mg/dL Magnesium (1.6-2.3) mg/dL Total Bilirubin (0.2-1.3) mg/dL AST (17-59) IU/L ALT (<50) IU/L Alkaline Phosphatase (38-126) U/L Total Creatine Kinase (55-170) U/L CK-MB (CK-2) (<2.37) ng/mL CK-MB (CK-2) Rel Index (1.5-5.0) % Troponin I < 0.012 (0.01-0.034) ng/mL Total Protein (6.3-8.2) g/dL Albumin (3.5-5.0) g/dL Globulin (1.7-4.1) g/dL Albumin/Globulin Ratio (1.0-2.8) Lipase (23-300) U/L SARS-CoV-2 (PCR) Negative (Negative) 11/05/21 11/06/21 11/06/21 Range/Units 20:06 02:40 02:40 WBC (4.5-11.0) X10^3/uL RBC (4.5-5.9) X10^6/uL Hgb 14.9 (13.5-17.5) g/dL Hct 44.4 (41-53) % MCV (80-100) fL MCH (26-34) PG MCHC (30-36) % RDW (11.6-14.8) % Plt Count (150-400) X10^3/uL Neut % (Auto) (50-75) % Lymph % (Auto) (25-40) % [place] % (Auto) (3-14) % Eos % (Auto) (2-4) % Baso % (Auto) (0-2) % Neut # (Auto) (3226-8876) /uL Lymph # (Auto) (8000-3596) /uL [place] # (Auto) (0-900) /uL Eos # (Auto) (0-450) /uL Baso # (Auto) (0-100) /uL APTT 38 H D (26.4-36.2) SECONDS Sodium (137-145) mmol/L Potassium (3.4-5.1) mmol/L Chloride (98-107) mmol/L Carbon Dioxide (22-32) mmol/L BUN (9-20) mg/dL Creatinine (0.66-1.25) mg/dL Estimated GFR (>60) mL/min BUN/Creatinine Ratio (6-22) Glucose (70-100) mg/dL Calcium (8.4-10.2) mg/dL Magnesium (1.6-2.3) mg/dL Total Bilirubin (0.2-1.3) mg/dL AST (17-59) IU/L ALT (<50) IU/L Alkaline Phosphatase (38-126) U/L Total Creatine Kinase (55-170) U/L CK-MB (CK-2) (<2.37) ng/mL CK-MB (CK-2) Rel Index (1.5-5.0) % Troponin I < 0.012 (0.01-0.034) ng/mL Total Protein (6.3-8.2) g/dL Albumin (3.5-5.0) g/dL Globulin (1.7-4.1) g/dL Albumin/Globulin Ratio (1.0-2.8) Lipase (23-300) U/L SARS-CoV-2 (PCR) (Negative) 11/06/21 11/06/21 11/06/21 Range/Units 08:55 08:55 08:55 WBC 5.5 (4.5-11.0) X10^3/uL RBC 5.21 (4.5-5.9) X10^6/uL Hgb 15.5 (13.5-17.5) g/dL Hct 45.7 (41-53) % MCV 87.7 (80-100) fL MCH 29.7 (26-34) PG MCHC 33.9 (30-36) % RDW 13.7 (11.6-14.8) % Plt Count 287 (150-400) X10^3/uL Neut % (Auto) 63.6 (50-75) % Lymph % (Auto) 25.4 (25-40) % [place] % (Auto) 6.6 (3-14) % Eos % (Auto) 3.5 (2-4) % Baso % (Auto) 0.9 (0-2) % Neut # (Auto) 3500 (4207-0006) /uL Lymph # (Auto) 1400 (3853-8562) /uL [place] # (Auto) 400 (0-900) /uL Eos # (Auto) 200 (0-450) /uL Baso # (Auto) 0 (0-100) /uL APTT 97 H* D (26.4-36.2) SECONDS Sodium 138 (137-145) mmol/L Potassium 4.2 (3.4-5.1) mmol/L Chloride 104 (98-107) mmol/L Carbon Dioxide 26 (22-32) mmol/L BUN 16 (9-20) mg/dL Creatinine 0.88 (0.66-1.25) mg/dL Estimated GFR > 60.0 (>60) mL/min BUN/Creatinine Ratio 18.2 (6-22) Glucose 187 H (70-100) mg/dL Calcium 9.4 (8.4-10.2) mg/dL Magnesium (1.6-2.3) mg/dL Total Bilirubin (0.2-1.3) mg/dL AST (17-59) IU/L ALT (<50) IU/L Alkaline Phosphatase (38-126) U/L Total Creatine Kinase (55-170) U/L CK-MB (CK-2) (<2.37) ng/mL CK-MB (CK-2) Rel Index (1.5-5.0) % Troponin I < 0.012 (0.01-0.034) ng/mL Total Protein (6.3-8.2) g/dL Albumin (3.5-5.0) g/dL Globulin (1.7-4.1) g/dL Albumin/Globulin Ratio (1.0-2.8) Lipase (23-300) U/L SARS-CoV-2 (PCR) (Negative) 11/06/21 Range/Units 15:06 WBC (4.5-11.0) X10^3/uL RBC (4.5-5.9) X10^6/uL Hgb (13.5-17.5) g/dL Hct (41-53) % MCV (80-100) fL MCH (26-34) PG MCHC (30-36) % RDW (11.6-14.8) % Plt Count (150-400) X10^3/uL Neut % (Auto) (50-75) % Lymph % (Auto) (25-40) % [place] % (Auto) (3-14) % Eos % (Auto) (2-4) % Baso % (Auto) (0-2) % Neut # (Auto) (8738-4295) /uL Lymph # (Auto) (5665-0131) /uL [place] # (Auto) (0-900) /uL Eos # (Auto) (0-450) /uL Baso # (Auto) (0-100) /uL APTT 53 H D (26.4-36.2) SECONDS Sodium (137-145) mmol/L Potassium (3.4-5.1) mmol/L Chloride (98-107) mmol/L Carbon Dioxide (22-32) mmol/L BUN (9-20) mg/dL Creatinine (0.66-1.25) mg/dL Estimated GFR (>60) mL/min BUN/Creatinine Ratio (6-22) Glucose (70-100) mg/dL Calcium (8.4-10.2) mg/dL Magnesium (1.6-2.3) mg/dL Total Bilirubin (0.2-1.3) mg/dL AST (17-59) IU/L ALT (<50) IU/L Alkaline Phosphatase (38-126) U/L Total Creatine Kinase (55-170) U/L CK-MB (CK-2) (<2.37) ng/mL CK-MB (CK-2) Rel Index (1.5-5.0) % Troponin I (0.01-0.034) ng/mL Total Protein (6.3-8.2) g/dL Albumin (3.5-5.0) g/dL Globulin (1.7-4.1) g/dL Albumin/Globulin Ratio (1.0-2.8) Lipase (23-300) U/L SARS-CoV-2 (PCR) (Negative) Imaging Data Chest x-ray: Radiologist's Impression: [address] [address] XRay Report Signed Patient: Maite Carter MR#: [id number] : 1980 Acct:[id number] Age/Sex: 41 / M Date of Service: 11/05/21 Loc: ED Accession Number: [id number] ?? Procedure: XR chest 1V Ordering Provider: Alejandra Madrigal D.O. PROCEDURE:? XR CHEST 1V ? INDICATIONS:? chest pain ? TECHNIQUE:? One view of the chest was acquired.? ? COMPARISON:? [facility], CR, XR CHEST 1VW (PORTABLE), 07/10/2015, 14:59.? [facility], CR, XR CHEST 1V, 10/29/2018, 22:21. ? FINDINGS:? ? Surgical changes and devices:? None.? ? Lungs and pleura:? An incomplete inspiratory result is noted, causing a crowded appearance to the lung markings.? No focal infiltrates are seen.? No pneumothorax or significant pleural effusions are seen. ? ? Mediastinum:? Mediastinal contours appear normal.? Heart size is at the upper limits of normal for incomplete inspiratory result.? ? Bones and chest wall:? No suspicious bony lesions.? Overlying soft tissues appear unremarkable.? ? ? IMPRESSION:? ? Limited portable chest examination, without a significant cardiopulmonary abnormality identified.? ? ? Dictated by: Lul Winters M.D. on 11/05/2021 at 9:06 ? ? Approved by: Lul Winters M.D. on 11/05/2021 at 9:07 ? ECG Data Interpretation: Normal sinus rhythm with rate 69, no ST elevation or depression nor other signs of ectopy, no T-wave inversions. Largely unchanged from prior <Mary Juarez, DO - Last Filed: 11/09/21 07:32> Lab Data Labs: Lab Results 11/05/21 11/05/21 11/05/21 Range/Units 10:00 10:00 10:00 WBC 7.6 (4.5-11.0) X10^3/uL RBC 5.22 (4.5-5.9) X10^6/uL Hgb 15.5 (13.5-17.5) g/dL Hct 45.6 (41-53) % MCV 87.4 (80-100) fL MCH 29.6 (26-34) PG MCHC 33.9 (30-36) % RDW 13.6 (11.6-14.8) % Plt Count 361 (150-400) X10^3/uL Neut % (Auto) 66.2 (50-75) % Lymph % (Auto) 21.6 L (25-40) % [place] % (Auto) 9.6 (3-14) % Eos % (Auto) 2.0 (2-4) % Baso % (Auto) 0.6 (0-2) % Neut # (Auto) 5000 (2857-7423) /uL Lymph # (Auto) 1600 (1494-6656) /uL [place] # (Auto) 700 (0-900) /uL Eos # (Auto) 200 (0-450) /uL Baso # (Auto) 0 (0-100) /uL APTT 38 H (26.4-36.2) SECONDS Sodium 140 (137-145) mmol/L Potassium 3.9 (3.4-5.1) mmol/L Chloride 105 (98-107) mmol/L Carbon Dioxide 27 (22-32) mmol/L BUN 14 (9-20) mg/dL Creatinine 0.95 (0.66-1.25) mg/dL Estimated GFR > 60.0 (>60) mL/min BUN/Creatinine Ratio 14.7 (6-22) Glucose 104 H (70-100) mg/dL Calcium 10.0 (8.4-10.2) mg/dL Magnesium 2.1 (1.6-2.3) mg/dL Total Bilirubin 0.7 (0.2-1.3) mg/dL AST 26 (17-59) IU/L ALT 47 (<50) IU/L Alkaline Phosphatase 80 (38-126) U/L Total Creatine Kinase 143 (55-170) U/L CK-MB (CK-2) 0.73 (<2.37) ng/mL CK-MB (CK-2) Rel Index 0.5 L (1.5-5.0) % Troponin I < 0.012 (0.01-0.034) ng/mL Total Protein 8.1 (6.3-8.2) g/dL Albumin 4.7 (3.5-5.0) g/dL Globulin 3.4 (1.7-4.1) g/dL Albumin/Globulin Ratio 1.4 (1.0-2.8) Lipase 132 (23-300) U/L SARS-CoV-2 (PCR) (Negative) 11/05/21 11/05/21 11/05/21 Range/Units 10:15 12:00 20:06 WBC (4.5-11.0) X10^3/uL RBC (4.5-5.9) X10^6/uL Hgb (13.5-17.5) g/dL Hct (41-53) % MCV (80-100) fL MCH (26-34) PG MCHC (30-36) % RDW (11.6-14.8) % Plt Count (150-400) X10^3/uL Neut % (Auto) (50-75) % Lymph % (Auto) (25-40) % [place] % (Auto) (3-14) % Eos % (Auto) (2-4) % Baso % (Auto) (0-2) % Neut # (Auto) (8082-4282) /uL Lymph # (Auto) (9999-1396) /uL [place] # (Auto) (0-900) /uL Eos # (Auto) (0-450) /uL Baso # (Auto) (0-100) /uL APTT 117 H* D (26.4-36.2) SECONDS Sodium (137-145) mmol/L Potassium (3.4-5.1) mmol/L Chloride (98-107) mmol/L Carbon Dioxide (22-32) mmol/L BUN (9-20) mg/dL Creatinine (0.66-1.25) mg/dL Estimated GFR (>60) mL/min BUN/Creatinine Ratio (6-22) Glucose (70-100) mg/dL Calcium (8.4-10.2) mg/dL Magnesium (1.6-2.3) mg/dL Total Bilirubin (0.2-1.3) mg/dL AST (17-59) IU/L ALT (<50) IU/L Alkaline Phosphatase (38-126) U/L Total Creatine Kinase (55-170) U/L CK-MB (CK-2) (<2.37) ng/mL CK-MB (CK-2) Rel Index (1.5-5.0) % Troponin I < 0.012 (0.01-0.034) ng/mL Total Protein (6.3-8.2) g/dL Albumin (3.5-5.0) g/dL Globulin (1.7-4.1) g/dL Albumin/Globulin Ratio (1.0-2.8) Lipase (23-300) U/L SARS-CoV-2 (PCR) Negative (Negative) 11/05/21 11/06/21 11/06/21 Range/Units 20:06 02:40 02:40 WBC (4.5-11.0) X10^3/uL RBC (4.5-5.9) X10^6/uL Hgb 14.9 (13.5-17.5) g/dL Hct 44.4 (41-53) % MCV (80-100) fL MCH (26-34) PG MCHC (30-36) % RDW (11.6-14.8) % Plt Count (150-400) X10^3/uL Neut % (Auto) (50-75) % Lymph % (Auto) (25-40) % [place] % (Auto) (3-14) % Eos % (Auto) (2-4) % Baso % (Auto) (0-2) % Neut # (Auto) (6787-2323) /uL Lymph # (Auto) (4527-1530) /uL [place] # (Auto) (0-900) /uL Eos # (Auto) (0-450) /uL Baso # (Auto) (0-100) /uL APTT 38 H D (26.4-36.2) SECONDS Sodium (137-145) mmol/L Potassium (3.4-5.1) mmol/L Chloride (98-107) mmol/L Carbon Dioxide (22-32) mmol/L BUN (9-20) mg/dL Creatinine (0.66-1.25) mg/dL Estimated GFR (>60) mL/min BUN/Creatinine Ratio (6-22) Glucose (70-100) mg/dL Calcium (8.4-10.2) mg/dL Magnesium (1.6-2.3) mg/dL Total Bilirubin (0.2-1.3) mg/dL AST (17-59) IU/L ALT (<50) IU/L Alkaline Phosphatase (38-126) U/L Total Creatine Kinase (55-170) U/L CK-MB (CK-2) (<2.37) ng/mL CK-MB (CK-2) Rel Index (1.5-5.0) % Troponin I < 0.012 (0.01-0.034) ng/mL Total Protein (6.3-8.2) g/dL Albumin (3.5-5.0) g/dL Globulin (1.7-4.1) g/dL Albumin/Globulin Ratio (1.0-2.8) Lipase (23-300) U/L SARS-CoV-2 (PCR) (Negative) 11/06/21 11/06/21 11/06/21 Range/Units 08:55 08:55 08:55 WBC 5.5 (4.5-11.0) X10^3/uL RBC 5.21 (4.5-5.9) X10^6/uL Hgb 15.5 (13.5-17.5) g/dL Hct 45.7 (41-53) % MCV 87.7 (80-100) fL MCH 29.7 (26-34) PG MCHC 33.9 (30-36) % RDW 13.7 (11.6-14.8) % Plt Count 287 (150-400) X10^3/uL Neut % (Auto) 63.6 (50-75) % Lymph % (Auto) 25.4 (25-40) % [place] % (Auto) 6.6 (3-14) % Eos % (Auto) 3.5 (2-4) % Baso % (Auto) 0.9 (0-2) % Neut # (Auto) 3500 (5718-9496) /uL Lymph # (Auto) 1400 (9900-1856) /uL [place] # (Auto) 400 (0-900) /uL Eos # (Auto) 200 (0-450) /uL Baso # (Auto) 0 (0-100) /uL APTT 97 H* D (26.4-36.2) SECONDS Sodium 138 (137-145) mmol/L Potassium 4.2 (3.4-5.1) mmol/L Chloride 104 (98-107) mmol/L Carbon Dioxide 26 (22-32) mmol/L BUN 16 (9-20) mg/dL Creatinine 0.88 (0.66-1.25) mg/dL Estimated GFR > 60.0 (>60) mL/min BUN/Creatinine Ratio 18.2 (6-22) Glucose 187 H (70-100) mg/dL Calcium 9.4 (8.4-10.2) mg/dL Magnesium (1.6-2.3) mg/dL Total Bilirubin (0.2-1.3) mg/dL AST (17-59) IU/L ALT (<50) IU/L Alkaline Phosphatase (38-126) U/L Total Creatine Kinase (55-170) U/L CK-MB (CK-2) (<2.37) ng/mL CK-MB (CK-2) Rel Index (1.5-5.0) % Troponin I < 0.012 (0.01-0.034) ng/mL Total Protein (6.3-8.2) g/dL Albumin (3.5-5.0) g/dL Globulin (1.7-4.1) g/dL Albumin/Globulin Ratio (1.0-2.8) Lipase (23-300) U/L SARS-CoV-2 (PCR) (Negative) 11/06/21 Range/Units 15:06 WBC (4.5-11.0) X10^3/uL RBC (4.5-5.9) X10^6/uL Hgb (13.5-17.5) g/dL Hct (41-53) % MCV (80-100) fL MCH (26-34) PG MCHC (30-36) % RDW (11.6-14.8) % Plt Count (150-400) X10^3/uL Neut % (Auto) (50-75) % Lymph % (Auto) (25-40) % [place] % (Auto) (3-14) % Eos % (Auto) (2-4) % Baso % (Auto) (0-2) % Neut # (Auto) (0779-7119) /uL Lymph # (Auto) (6664-0175) /uL [place] # (Auto) (0-900) /uL Eos # (Auto) (0-450) /uL Baso # (Auto) (0-100) /uL APTT 53 H D (26.4-36.2) SECONDS Sodium (137-145) mmol/L Potassium (3.4-5.1) mmol/L Chloride (98-107) mmol/L Carbon Dioxide (22-32) mmol/L BUN (9-20) mg/dL Creatinine (0.66-1.25) mg/dL Estimated GFR (>60) mL/min BUN/Creatinine Ratio (6-22) Glucose (70-100) mg/dL Calcium (8.4-10.2) mg/dL Magnesium (1.6-2.3) mg/dL Total Bilirubin (0.2-1.3) mg/dL AST (17-59) IU/L ALT (<50) IU/L Alkaline Phosphatase (38-126) U/L Total Creatine Kinase (55-170) U/L CK-MB (CK-2) (<2.37) ng/mL CK-MB (CK-2) Rel Index (1.5-5.0) % Troponin I (0.01-0.034) ng/mL Total Protein (6.3-8.2) g/dL Albumin (3.5-5.0) g/dL Globulin (1.7-4.1) g/dL Albumin/Globulin Ratio (1.0-2.8) Lipase (23-300) U/L SARS-CoV-2 (PCR) (Negative) [facility] Narrative Medical decision making narrative: 11/05/21 (Ann) I received sign-out from Dr. Madrigal. The patient has significant cardiac history with multiple stents with symptoms concerning for unstable angina. He has been resting comfortably all night. He is on many wait lists. Will need to call places again in the morning. Limited echocardiogram done today awaiting result. May need to consider with stress test or other options as <Beau Ramires DO - Last Filed: 11/06/21 16:37> Lab Data Labs: Lab Results 11/05/21 11/05/21 11/05/21 Range/Units 10:00 10:00 10:00 WBC 7.6 (4.5-11.0) X10^3/uL RBC 5.22 (4.5-5.9) X10^6/uL Hgb 15.5 (13.5-17.5) g/dL Hct 45.6 (41-53) % MCV 87.4 (80-100) fL MCH 29.6 (26-34) PG MCHC 33.9 (30-36) % RDW 13.6 (11.6-14.8) % Plt Count 361 (150-400) X10^3/uL Neut % (Auto) 66.2 (50-75) % Lymph % (Auto) 21.6 L (25-40) % [place] % (Auto) 9.6 (3-14) % Eos % (Auto) 2.0 (2-4) % Baso % (Auto) 0.6 (0-2) % Neut # (Auto) 5000 (0377-5739) /uL Lymph # (Auto) 1600 (4355-6881) /uL [place] # (Auto) 700 (0-900) /uL Eos # (Auto) 200 (0-450) /uL Baso # (Auto) 0 (0-100) /uL APTT 38 H (26.4-36.2) SECONDS Sodium 140 (137-145) mmol/L Potassium 3.9 (3.4-5.1) mmol/L Chloride 105 (98-107) mmol/L Carbon Dioxide 27 (22-32) mmol/L BUN 14 (9-20) mg/dL Creatinine 0.95 (0.66-1.25) mg/dL Estimated GFR > 60.0 (>60) mL/min BUN/Creatinine Ratio 14.7 (6-22) Glucose 104 H (70-100) mg/dL Calcium 10.0 (8.4-10.2) mg/dL Magnesium 2.1 (1.6-2.3) mg/dL Total Bilirubin 0.7 (0.2-1.3) mg/dL AST 26 (17-59) IU/L ALT 47 (<50) IU/L Alkaline Phosphatase 80 (38-126) U/L Total Creatine Kinase 143 (55-170) U/L CK-MB (CK-2) 0.73 (<2.37) ng/mL CK-MB (CK-2) Rel Index 0.5 L (1.5-5.0) % Troponin I < 0.012 (0.01-0.034) ng/mL Total Protein 8.1 (6.3-8.2) g/dL Albumin 4.7 (3.5-5.0) g/dL Globulin 3.4 (1.7-4.1) g/dL Albumin/Globulin Ratio 1.4 (1.0-2.8) Lipase 132 (23-300) U/L SARS-CoV-2 (PCR) (Negative) 11/05/21 11/05/21 11/05/21 Range/Units 10:15 12:00 20:06 WBC (4.5-11.0) X10^3/uL RBC (4.5-5.9) X10^6/uL Hgb (13.5-17.5) g/dL Hct (41-53) % MCV (80-100) fL MCH (26-34) PG MCHC (30-36) % RDW (11.6-14.8) % Plt Count (150-400) X10^3/uL Neut % (Auto) (50-75) % Lymph % (Auto) (25-40) % [place] % (Auto) (3-14) % Eos % (Auto) (2-4) % Baso % (Auto) (0-2) % Neut # (Auto) (5917-4479) /uL Lymph # (Auto) (3533-3196) /uL [place] # (Auto) (0-900) /uL Eos # (Auto) (0-450) /uL Baso # (Auto) (0-100) /uL APTT 117 H* D (26.4-36.2) SECONDS Sodium (137-145) mmol/L Potassium (3.4-5.1) mmol/L Chloride (98-107) mmol/L Carbon Dioxide (22-32) mmol/L BUN (9-20) mg/dL Creatinine (0.66-1.25) mg/dL Estimated GFR (>60) mL/min BUN/Creatinine Ratio (6-22) Glucose (70-100) mg/dL Calcium (8.4-10.2) mg/dL Magnesium (1.6-2.3) mg/dL Total Bilirubin (0.2-1.3) mg/dL AST (17-59) IU/L ALT (<50) IU/L Alkaline Phosphatase (38-126) U/L Total Creatine Kinase (55-170) U/L CK-MB (CK-2) (<2.37) ng/mL CK-MB (CK-2) Rel Index (1.5-5.0) % Troponin I < 0.012 (0.01-0.034) ng/mL Total Protein (6.3-8.2) g/dL Albumin (3.5-5.0) g/dL Globulin (1.7-4.1) g/dL Albumin/Globulin Ratio (1.0-2.8) Lipase (23-300) U/L SARS-CoV-2 (PCR) Negative (Negative) 11/05/21 11/06/21 11/06/21 Range/Units 20:06 02:40 02:40 WBC (4.5-11.0) X10^3/uL RBC (4.5-5.9) X10^6/uL Hgb 14.9 (13.5-17.5) g/dL Hct 44.4 (41-53) % MCV (80-100) fL MCH (26-34) PG MCHC (30-36) % RDW (11.6-14.8) % Plt Count (150-400) X10^3/uL Neut % (Auto) (50-75) % Lymph % (Auto) (25-40) % [place] % (Auto) (3-14) % Eos % (Auto) (2-4) % Baso % (Auto) (0-2) % Neut # (Auto) (6049-7162) /uL Lymph # (Auto) (7329-5491) /uL [place] # (Auto) (0-900) /uL Eos # (Auto) (0-450) /uL Baso # (Auto) (0-100) /uL APTT 38 H D (26.4-36.2) SECONDS Sodium (137-145) mmol/L Potassium (3.4-5.1) mmol/L Chloride (98-107) mmol/L Carbon Dioxide (22-32) mmol/L BUN (9-20) mg/dL Creatinine (0.66-1.25) mg/dL Estimated GFR (>60) mL/min BUN/Creatinine Ratio (6-22) Glucose (70-100) mg/dL Calcium (8.4-10.2) mg/dL Magnesium (1.6-2.3) mg/dL Total Bilirubin (0.2-1.3) mg/dL AST (17-59) IU/L ALT (<50) IU/L Alkaline Phosphatase (38-126) U/L Total Creatine Kinase (55-170) U/L CK-MB (CK-2) (<2.37) ng/mL CK-MB (CK-2) Rel Index (1.5-5.0) % Troponin I < 0.012 (0.01-0.034) ng/mL Total Protein (6.3-8.2) g/dL Albumin (3.5-5.0) g/dL Globulin (1.7-4.1) g/dL Albumin/Globulin Ratio (1.0-2.8) Lipase (23-300) U/L SARS-CoV-2 (PCR) (Negative) 11/06/21 11/06/21 11/06/21 Range/Units 08:55 08:55 08:55 WBC 5.5 (4.5-11.0) X10^3/uL RBC 5.21 (4.5-5.9) X10^6/uL Hgb 15.5 (13.5-17.5) g/dL Hct 45.7 (41-53) % MCV 87.7 (80-100) fL MCH 29.7 (26-34) PG MCHC 33.9 (30-36) % RDW 13.7 (11.6-14.8) % Plt Count 287 (150-400) X10^3/uL Neut % (Auto) 63.6 (50-75) % Lymph % (Auto) 25.4 (25-40) % [place] % (Auto) 6.6 (3-14) % Eos % (Auto) 3.5 (2-4) % Baso % (Auto) 0.9 (0-2) % Neut # (Auto) 3500 (2118-0523) /uL Lymph # (Auto) 1400 (6392-3332) /uL [place] # (Auto) 400 (0-900) /uL Eos # (Auto) 200 (0-450) /uL Baso # (Auto) 0 (0-100) /uL APTT 97 H* D (26.4-36.2) SECONDS Sodium 138 (137-145) mmol/L Potassium 4.2 (3.4-5.1) mmol/L Chloride 104 (98-107) mmol/L Carbon Dioxide 26 (22-32) mmol/L BUN 16 (9-20) mg/dL Creatinine 0.88 (0.66-1.25) mg/dL Estimated GFR > 60.0 (>60) mL/min BUN/Creatinine Ratio 18.2 (6-22) Glucose 187 H (70-100) mg/dL Calcium 9.4 (8.4-10.2) mg/dL Magnesium (1.6-2.3) mg/dL Total Bilirubin (0.2-1.3) mg/dL AST (17-59) IU/L ALT (<50) IU/L Alkaline Phosphatase (38-126) U/L Total Creatine Kinase (55-170) U/L CK-MB (CK-2) (<2.37) ng/mL CK-MB (CK-2) Rel Index (1.5-5.0) % Troponin I < 0.012 (0.01-0.034) ng/mL Total Protein (6.3-8.2) g/dL Albumin (3.5-5.0) g/dL Globulin (1.7-4.1) g/dL Albumin/Globulin Ratio (1.0-2.8) Lipase (23-300) U/L SARS-CoV-2 (PCR) (Negative) 11/06/21 Range/Units 15:06 WBC (4.5-11.0) X10^3/uL RBC (4.5-5.9) X10^6/uL Hgb (13.5-17.5) g/dL Hct (41-53) % MCV (80-100) fL MCH (26-34) PG MCHC (30-36) % RDW (11.6-14.8) % Plt Count (150-400) X10^3/uL Neut % (Auto) (50-75) % Lymph % (Auto) (25-40) % [place] % (Auto) (3-14) % Eos % (Auto) (2-4) % Baso % (Auto) (0-2) % Neut # (Auto) (3432-8109) /uL Lymph # (Auto) (5878-0739) /uL [place] # (Auto) (0-900) /uL Eos # (Auto) (0-450) /uL Baso # (Auto) (0-100) /uL APTT 53 H D (26.4-36.2) SECONDS Sodium (137-145) mmol/L Potassium (3.4-5.1) mmol/L Chloride (98-107) mmol/L Carbon Dioxide (22-32) mmol/L BUN (9-20) mg/dL Creatinine (0.66-1.25) mg/dL Estimated GFR (>60) mL/min BUN/Creatinine Ratio (6-22) Glucose (70-100) mg/dL Calcium (8.4-10.2) mg/dL Magnesium (1.6-2.3) mg/dL Total Bilirubin (0.2-1.3) mg/dL AST (17-59) IU/L ALT (<50) IU/L Alkaline Phosphatase (38-126) U/L Total Creatine Kinase (55-170) U/L CK-MB (CK-2) (<2.37) ng/mL CK-MB (CK-2) Rel Index (1.5-5.0) % Troponin I (0.01-0.034) ng/mL Total Protein (6.3-8.2) g/dL Albumin (3.5-5.0) g/dL Globulin (1.7-4.1) g/dL Albumin/Globulin Ratio (1.0-2.8) Lipase (23-300) U/L SARS-CoV-2 (PCR) (Negative) Imaging Data echo: Radiologist's Impression: [address] [address] Echocardiography Report Signed Patient: Maite Carter MR#: [id number] : 1980 Acct:[id number] Age/Sex: 41 / M Date of Service: 11/05/21 Loc: ED Accession Number: [id number] ?? Procedure: EC echo doppler complete Ordering Provider: Alejandra Madrigal D.O. [facility] +---------+ : ? :? [address] ? : ? : : ? :? [place], [place] ? : ? : : ? :? [address] ? : ? : : ? : ? Phone: [phone] ? : [phone]---------[phone]? [phone]? +---------+ ? Echocardiogram Report + + :Name: MAITE CARTER? Study Date: 11/05/2021 ? Height: 68 in? : :[facility] ? ? ReadingLocation: ? Weight: 208 lb : : ? Gender: Male ? BSA: 2.1 m2? ? : :: 1980? Age: 41 yrs? BP: 114/83 mmHg: :Reason For Study: CHEST PAIN, HISTORY OF CAD, MULTIPLE STENTS? : :Ordering Physician: KENDRA,? : :ALEJANDRA ? Performed By: Chantel Maki? : :Referring: ALEJANDRA MADRIGAL? : + + Interpretation Summary The ejection fraction is estimated to be 40-45%. The basal to mid inferolateral is akinetic. Diastolic function could not be accurately assessed due to unobtainable data. ? The right ventricle is grossly normal size. Right ventricular systolic function is mildly reduced. ? No significant valvular abnormalities. ? Pulmonary artery pressures cannot be estimated because of the lack of a measurable TR jet velocity. ? Compared to the prior study dated 10/30/2018, there is no obvious lateral wall motion abnormality on the current study however this could be due to technique and if so, no significant change. ? Procedure: ? A two-dimensional transthoracic echocardiogram with color flow and Doppler was performed. The study quality was technically adequate. Comparison is made with the echocardiogram of 10/30/2018. The patient was in sinus bradycardia with heart rates between 53-65 bpm during the exam. Left Ventricle: ? The left ventricle is normal in size and wall thickness. The ejection fraction is estimated to be 40-45%. The basal to mid inferolateral is akinetic. Diastolic function could not be accurately assessed due to unobtainable data. Right Ventricle: ? The right ventricle is grossly normal size. Right ventricular systolic function is mildly reduced. Atria: ? The left atrial size is normal. Right atrial size is normal. There is no Doppler evidence for an interatrial shunt. Mitral Valve: ? The mitral valve is normal in structure and function. There is no mitral regurgitation noted. Aortic Valve: ? The aortic valve is not well visualized. There is no aortic valve stenosis. No aortic regurgitation is present. Tricuspid Valve: ? The tricuspid valve is normal in structure and function. There is a trace or physiologic amount of tricuspid regurgitation. Pulmonary artery pressures cannot be estimated because of the lack of a measurable TR jet velocity. Pulmonic Valve: ? The pulmonic valve leaflets are thin and pliable; valve motion is normal. There is mild pulmonic regurgitation. Great Vessels: ? The aortic root is normal size. The ascending aorta is at the upper limits of normal in size. The inferior vena cava was not well visualized. Pericardium/ Pleura ? There is no pericardial effusion. There is no pleural effusion. ? MMode/2D Measurements & Calculations LVIDd: 5.2 cm? LVOT diam: 2.1 cm LVIDs: 4.4 cm? Ao root diam: 3.2 cm FS: 15.8 % ? asc Aorta Diam: 3.5 cm IVSd: 1.0 cm ? Ao Arch Diam (Prox Trans): 2.8 cm LVPWd: 1.1 cm LV garrison. diameter/BSA (cm/m^2): 2.5 LV sys. diameter/BSA (cm/m^2): 2.1 ? LA A2 area: 12.6 cm2 ? RA long axis: 4.6 cm LA A4 area: 12.2 cm2 ? RA area: 10.5 cm2 LA length (vol): 4.7 cm? RA vol: 20.0 ml LA vol: 28.0 ml? RA : 9.6 ml/m2 LA vol index: 13.5 ml/m2 ? RVD1 (basal): 3.4 cm TAPSE: 1.5 cm ? Doppler Measurements & Calculations Ao V2 max: 97.1 cm/sec? LVOT Max Cedric: 73.4 cm/sec Ao V2 mean: 65.7 cm/sec ? LV V1 max P.2 mmHg Ao max P.8 mmHg ? LV V1 VTI: 15.2 cm Ao mean P.0 mmHg? COOPER(I,D): 2.6 cm2 Ao V2 VTI: 20.2 cm? OCOPER(V,D): 2.6 cm2 ? sev ratio: 0.75 ? COOPER indexed to BSA (cm^2/m^2): 1.3 ? MV E max cedric: 69.4 cm/sec ? PA V2 max: 85.8 cm/sec MV A max cedric: 46.5 cm/sec ? PA V2 mean: 54.0 cm/sec MV E/A: 1.5 ? PA mean P.3 mmHg Med Peak E' Cedric: 7.4 cm/sec ? ? ? PA pr(Accel): 39.6 mmHg E/E' med: 9.3 Lat Peak E' Cedric: 8.8 cm/sec E/E' lat: 7.9 E/e' average: 8.6 MV dec time: 0.18 sec ? SV(LVOT): 53.1 ml ? Reading Physician:09:05 AM ECG Data Interpretation: Normal sinus rhythm with rate 69, no ST elevation or depression nor other signs of ectopy, no T-wave inversions. Largely unchanged from prior Repeat EKG Sinus rhythm Ventricular rate is 76 Sinus arrhythmia LVH Normal QRS Normal QTC Q-waves lead 1 to V5 V6 No ST T wave changes MDM Narrative Medical decision making narrative: 11/05/21 (Ann) I received sign-out from Dr. Madrigal. The patient has significant cardiac history with multiple stents with symptoms concerning for unstable angina. He has been resting comfortably all night. He is on many wait lists. Will need to call places again in the morning. Limited echocardiogram done today awaiting result. May need to consider with stress test or other options as Dr ramires: 11/06/21: Received turned over. Reviewed patient's history and physical exam. Patient has had multiple negative troponins. Repeat EKG relatively unchanged from presentation EKG. Is symptom-free. Is currently on heparin. Patient has remained stable throughout the day. Discussed the case with Dr. Rick at [facility] in [place] who accepts the patient for transfer. I also discussed the case with cardiology who is willing to see the patient upon transfer. Discussed transfer with the patient. He is c urrently stable for transport. He expressed understanding and agreement. Critical Care Time <Alejandra Madrigal - Last Filed: 11/06/21 22:27> Critical Care Time Critical Care Time: Yes Total Critical Care Time: 120 Attestation: The high probability of a clinically significant, sudden or life threatening deterioration of the [CV] system(s) required my full and direct attention, intervention and personal management. The aggregate critical care time was [120] minutes. This time is in addition to time spent performing reported procedures but includes the following: [x] Data Review and interpretation [x] Patient assessment and monitoring of vital signs [x] Documentation [x] Medication orders and management Discharge Plan Departure Patient Disposition: [facility] Clinical Impression: Angina pectoris, unstable, Labyrinthitis Prescriptions: No Action carvedilol 12.5 mg Tablet 12.5 mg PO BID 0RF aspirin [Adult Low Dose Aspirin] 81 mg Tablet,Delayed Release (Dr/Ec) 81 mg PO QAM 0RF nitroglycerin 0.4 mg Tablet, Sublingual 0.4 mg SUBLINGUAL Q5-15M PRN (Reason: Chest Pain) 0RF ezetimibe [Zetia] 10 mg Tablet 10 mg PO QAM 0RF atorvastatin 80 mg Tablet 80 mg PO QAM 0RF clopidogrel 75 mg tablet 75 mg PO QAM 0RF lisinopril 10 mg Tablet 10 mg PO BID 0RF Jardiance 25 mg tablet 25 mg PO QAM 0RF Trulicity 1.5 mg/0.5 mL pen injector 1.5 mg SUBCUT QWEEK 0RF Rx Instructions: Mondays Referrals: Sary Dewitt MD [Primary Care Provider] -
[2021-11-05 10:22] LABS: Alanine Aminotransferase 47 IU/L (<50); Albumin 4.7 g/dL (3.5-5.0); Albumin Globulin Ratio 1.4 (1.0-2.8); Alkaline Phosphatase 80 U/L (38-126); Aspartate Aminotransferase 26 IU/L (17-59); BUN Creatinine Ratio 14.7 (6-22); Bilirubin Total 0.7 mg/dL (0.2-1.3); Blood Urea Nitrogen 14 mg/dL (9-20); Carbon Dioxide 27 mmol/L (22-32); Chloride 105 mmol/L (98-107); Creatine Kinase 143 U/L (55-170); Estimated Glomerular Filt Rate > 60.0 mL/min (>60); Globulin 3.4 g/dL (1.7-4.1); Glucose 104 mg/dL (70-100); HEMOLYSIS < 15 (0-50); Lipase 132 U/L (23-300); Magnesium 2.1 mg/dL (1.6-2.3); Potassium 3.9 mmol/L (3.4-5.1); Sodium 140 mmol/L (137-145); Total Protein 8.1 g/dL (6.3-8.2)
[2021-11-05 10:32] LABS: Troponin I < 0.012 ng/mL (0.01-0.034)
--- NOTE | 2021-11-05 10:35 | DI.CT.S_ITS ---
PROCEDURE: CT ANGIO CHEST ABDOMEN PELVIS INDICATIONS: severe tearing chest pain with radiation to back TECHNIQUE: Precontrast 5 mm thick sections acquired from the lung apices to the iliac crests. After the administration of intravenous contrast, 2.5 mm thick sections again acquired from the lung apices to the iliac crests. Maximum intensity projection (MIP) oblique sagittal and coronal reformats were then acquired. For radiation dose reduction, the following was used: automated exposure control. COMPARISON: None. FINDINGS: Image quality: Excellent. AORTA: No evidence of dissection, aneurysm, or significant stenosis. CHEST: Lungs and pleura: No acute airspace opacities. No pleural effusions or pneumothorax. Central and peripheral airways are patent and normal in caliber. Mediastinum: Heart size is normal. There is calcification of the coronary vasculature. No pericardial effusion. No mediastinal or hilar adenopathy by size criteria. Central pulmonary arteries are normal in size. Esophagus is normal in caliber. No hiatal hernias. Bones and chest wall: No axillary adenopathy by size criteria. Thyroid gland is within normal limits . No suspicious bony lesions. No vertebral body compression fractures. ABDOMEN: Vasculature: Celiac trunk and mesenteric arteries are patent. Renal arteries are also patent. Solid organs: Liver is enlarged and demonstrates diffusely decreased density. No focal hepatic mass. Gallbladder is grossly unremarkable . Biliary system is non dilated. Pancreas enhances normally. Spleen is normal in size and enhancement. No adrenal nodules. Both kidneys are normal in size and enhancement, without hydronephrosis. Peritoneum and bowel: No free fluid or air. Stomach and colon are within normal limits. Appendix is not seen. No evidence of appendicitis. Multiple mildly distended fluid-filled and thickened small bowel loops are present. Nodes and vessels: No retroperitoneal or mesenteric adenopathy by size criteria. Multiple mildly prominent subcentimeter mesenteric lymph nodes are present. Inferior vena cava is normal in morphology. Miscellaneous: No ventral hernias. PELVIS: Genitourinary: Bladder wall thickness is normal. Miscellaneous: No inguinal hernias or adenopathy. No ventral hernias. Bones: No suspicious bony lesions. No vertebral body compression fractures. IMPRESSION: 1. Findings suggestive of gastroenteritis. 2. No evidence of dissection involving the thoracoabdominal aorta. 3. Hepatic steatosis. 4. Appendix not seen. No evidence of appendicitis. 5. Coronary artery disease. Dictated by: Kathleen Arnold M.D. on 11/05/2021 at 11:26 Approved by: Kathleen Arnold M.D. on 11/05/2021 at 11:34
[2021-11-05 10:37] LABS: CKMB % Relative Index 0.5 % (1.5-5.0); Creatine Kinase MB 0.73 ng/mL (<2.37)
[2021-11-05 10:39] LABS: COVID19 -Nasal RAPID Negative (Negative)
[2021-11-05] MEDS: MORPHINE 4 MG/ML INJ IV (10:47)
[2021-11-05 12:30] LABS: Troponin I < 0.012 ng/mL (0.01-0.034)
--- NOTE | 2021-11-05 13:46 | DI.ECHO.S_ITS ---
[facility] +---------+ : : [address] : : : : [id number] : : : : Phone: [phone]+ Echocardiogram Report + + :Name: MAITE ANDREW Study Date: 11/05/2021 Height: 68 in : :[facility] ReadingLocation: Weight: 208 lb : : Gender: Male BSA: 2.1 m2 : :: 1980 Age: 41 yrs BP: 114/83 mmHg: :Reason For Study: CHEST PAIN, HISTORY OF CAD, MULTIPLE STENTS : :Ordering Physician: KENDRA, : :ALEJANDRA Performed By: Chantel Maki : :Referring: ALEJANDRA GARDNER : + + Interpretation Summary The ejection fraction is estimated to be 40-45%. The basal to mid inferolateral is akinetic. Diastolic function could not be accurately assessed due to unobtainable data. The right ventricle is grossly normal size. Right ventricular systolic function is mildly reduced. No significant valvular abnormalities. Pulmonary artery pressures cannot be estimated because of the lack of a measurable TR jet velocity. Compared to the prior study dated 10/30/2018, there is no obvious lateral wall motion abnormality on the current study however this could be due to technique and if so, no significant change. Procedure: A two-dimensional transthoracic echocardiogram with color flow and Doppler was performed. The study quality was technically adequate. Comparison is made with the echocardiogram of 10/30/2018. The patient was in sinus bradycardia with heart rates between 53-65 bpm during the exam. Left Ventricle: The left ventricle is normal in size and wall thickness. The ejection fraction is estimated to be 40-45%. The basal to mid inferolateral is akinetic. Diastolic function could not be accurately assessed due to unobtainable data. Right Ventricle: The right ventricle is grossly normal size. Right ventricular systolic function is mildly reduced. Atria: The left atrial size is normal. Right atrial size is normal. There is no Doppler evidence for an interatrial shunt. Mitral Valve: The mitral valve is normal in structure and function. There is no mitral regurgitation noted. Aortic Valve: The aortic valve is not well visualized. There is no aortic valve stenosis. No aortic regurgitation is present. Tricuspid Valve: The tricuspid valve is normal in structure and function. There is a trace or physiologic amount of tricuspid regurgitation. Pulmonary artery pressures cannot be estimated because of the lack of a measurable TR jet velocity. Pulmonic Valve: The pulmonic valve leaflets are thin and pliable; valve motion is normal. There is mild pulmonic regurgitation. Great Vessels: The aortic root is normal size. The ascending aorta is at the upper limits of normal in size. The inferior vena cava was not well visualized. Pericardium/ Pleura There is no pericardial effusion. There is no pleural effusion. MMode/2D Measurements & Calculations LVIDd: 5.2 cm LVOT diam: 2.1 cm LVIDs: 4.4 cm Ao root diam: 3.2 cm FS: 15.8 % asc Aorta Diam: 3.5 cm IVSd: 1.0 cm Ao Arch Diam (Prox Trans): 2.8 cm LVPWd: 1.1 cm LV garrison. diameter/BSA (cm/m^2): 2.5 LV sys. diameter/BSA (cm/m^2): 2.1 LA A2 area: 12.6 cm2 RA long axis: 4.6 cm LA A4 area: 12.2 cm2 RA area: 10.5 cm2 LA length (vol): 4.7 cm RA vol: 20.0 ml LA vol: 28.0 ml RA : 9.6 ml/m2 LA vol index: 13.5 ml/m2 RVD1 (basal): 3.4 cm TAPSE: 1.5 cm Doppler Measurements & Calculations Ao V2 max: 97.1 cm/sec LVOT Max Cedric: 73.4 cm/sec Ao V2 mean: 65.7 cm/sec LV V1 max P.2 mmHg Ao max P.8 mmHg LV V1 VTI: 15.2 cm Ao mean P.0 mmHg COOPER(I,D): 2.6 cm2 Ao V2 VTI: 20.2 cm COOPER(V,D): 2.6 cm2 sev ratio: 0.75 COOPER indexed to BSA (cm^2/m^2): 1.3 MV E max cedric: 69.4 cm/sec PA V2 max: 85.8 cm/sec MV A max cedric: 46.5 cm/sec PA V2 mean: 54.0 cm/sec MV E/A: 1.5 PA mean P.3 mmHg Med Peak E' Cedric: 7.4 cm/sec PA pr(Accel): 39.6 mmHg E/E' med: 9.3 Lat Peak E' Cedric: 8.8 cm/sec E/E' lat: 7.9 E/e' average: 8.6 MV dec time: 0.18 sec SV(LVOT): 53.1 ml Reading Physician:09:05 AM
[2021-11-05 14:19] LABS: PTT Partial Thromboplastin Tim 38 SECONDS (26.4-36.2)
[2021-11-05] MEDS: HEPARIN DRIP 25,000 UNIT/500 ML IV.SOLN 20 UNIT IV (14:24)
[2021-11-05] MEDS: HEPARIN 5,000 UNIT/ML VIAL 5000 UNIT IV (14:25)
--- NOTE | 2021-11-05 14:26 | PC.NURSE ---
Heparin dose cosigned by Kimberly Fallon Rn
[2021-11-05 20:42] LABS: Troponin I < 0.012 ng/mL (0.01-0.034)
[2021-11-05 20:45] LABS: PTT Partial Thromboplastin Tim 117 SECONDS (26.4-36.2)
[2021-11-05] MEDS: carvediloL 12.5 MG TABLET PO (20:57)
[2021-11-05] MEDS: lisinopriL 10 MG TABLET PO (20:57)
[2021-11-06] VITALS (71 sets, daily range): BP systolic 103–156; BP diastolic 66–108; PULSE 52–84; RESP 12–27; O2SAT 92–97
[2021-11-06 02:59] LABS: Hematocrit 44.4 % (41-53); Hemoglobin 14.9 g/dL (13.5-17.5)
[2021-11-06 03:08] LABS: PTT Partial Thromboplastin Tim 38 SECONDS (26.4-36.2)
[2021-11-06] MEDS: HEPARIN 5,000 UNIT/ML VIAL 3000 UNIT IV (03:24)
[2021-11-06] MEDS: CLOPIDOGREL 75 MG TABLET PO (08:36)
[2021-11-06] MEDS: carvediloL 12.5 MG TABLET PO (08:37)
[2021-11-06] MEDS: lisinopriL 10 MG TABLET PO (08:37)
[2021-11-06] MEDS: ATORVASTATIN 20 MG TABLET 80 MG PO (08:38)
[2021-11-06] MEDS: EZETIMIBE 10 MG TABLET PO (08:38)
[2021-11-06] MEDS: ASPIRIN EC 81 MG TABLET PO (08:41)
[2021-11-06 09:02] LABS: Add Manual Diff / Slide Review NO; Basophils Absolute Auto 0 /uL (0-100); Basophils Percent Auto 0.9 % (0-2); Eosinophils Absolute Auto 200 /uL (0-450); Eosinophils Percent Auto 3.5 % (2-4); Hematocrit 45.7 % (41-53); Hemoglobin 15.5 g/dL (13.5-17.5); Lymphocytes Absolute Auto 1400 /uL (1100-4500); Lymphocytes Percent Auto 25.4 % (25-40); Mean Corpuscular HGB Conc 33.9 % (30-36); Mean Corpuscular Hemoglobin 29.7 PG (26-34); Mean Corpuscular Volume 87.7 fL (80-100); Monocytes Absolute Auto 400 /uL (0-900); Monocytes Percent Auto 6.6 % (3-14); Neutrophils Absolute Auto 3500 /uL (1500-7000); Neutrophils Percent Auto 63.6 % (50-75); Platelet Count 287 X10^3/uL (150-400); Red Blood Cell Count 5.21 X10^6/uL (4.5-5.9); Red Cell Distribution Width 13.7 % (11.6-14.8); White Blood Cell Count 5.5 X10^3/uL (4.5-11.0)
[2021-11-06 09:15] LABS: BUN Creatinine Ratio 18.2 (6-22); Blood Urea Nitrogen 16 mg/dL (9-20); Calcium 9.4 mg/dL (8.4-10.2); Carbon Dioxide 26 mmol/L (22-32); Chloride 104 mmol/L (98-107); Estimated Glomerular Filt Rate > 60.0 mL/min (>60); Glucose 187 mg/dL (70-100); HEMOLYSIS < 15 (0-50); Potassium 4.2 mmol/L (3.4-5.1); Sodium 138 mmol/L (137-145)
[2021-11-06 09:20] LABS: PTT Partial Thromboplastin Tim 97 SECONDS (26.4-36.2)
--- NOTE | 2021-11-06 09:22 | PC.NURSE ---
critical value ptt, cardiac protocol, MD Dr Ramires aware ptt 97 off x 30 mins (at 0915 am) then restart at 17 ml/hr at 0945 am
[2021-11-06 09:26] LABS: Troponin I < 0.012 ng/mL (0.01-0.034)
--- NOTE | 2021-11-06 12:37 | PC.NURSE ---
Called [facility] transfer center at 8:30am and verified that patient remains on waiting list. Called [facility] transfer center at 8:40 and placed him on the waiting list. Called [facility] transfer center 8:50 and placed him on the waiting list. Called transfer center 9:00 and asked if patient on waitlist and if not if I could place him on the waitlist. Patient was declined yesterday at 15:00 per transfer center. Called [facility] at 9:10 and placed patient on waitlist.
[2021-11-06 15:28] LABS: PTT Partial Thromboplastin Tim 53 SECONDS (26.4-36.2)
--- NOTE | 2021-11-06 17:40 | PC.NURSE ---
Heparin continued with NWA.
== END 2021-11-06 17:41 | disposition short-term general hospital (02) ==
PROVIDERS: Emergency Medicine; Emergency Provider Emergency Medicine; Family Provider Pediatrics; PCP Pediatrics
DX: I20.0 Unstable angina (principal); H83.09 Labyrinthitis, unspecified ear; Z20.822 Contact with and (suspected) exposure to COVID-19; Z87.891 Personal history of nicotine dependence
CPT/HCPCS: 36415; 71045; 71275; 74174; 80048; 80053; 82550; 82553; 83690; 83735; 84484; 85014; 85018; 85025; 85730; 87635; 93005; 93010; 93306; 96365; 96366; 96375; 96376; 99285; 99291; 99292; C9803; J1644; J2270; Q9967